=== PATIENT | female | born 1995 | race African-American/Black ===

== ENCOUNTER 2025-09-05 13:49 | Emergency (ER) | payer SELFPAY | END 2025-09-05 15:38 | disposition left against medical advice (07) | LOC: CSHERS 13:49 | DX: Z53.21 Procedure and treatment not carried out due to patient leaving prior to being seen by health care provider (principal) ==

== ENCOUNTER 2025-09-22 20:11 | Emergency (ER) | payer SELFPAY ==
[2025-09-22 20:33] LABS: Glucose, Urine (Dipstick) Normal (Negative); Leukocyte Negative (Negative); Protein, Urine (Dipstick) 30 mg/dl (Neg-Trace); Specific Gravity, Urine 1.015 (1.005-1.030)
[2025-09-22 20:35] LABS: Pregnancy Test - Urine (BHCG) Negative (Negative); Pregu Control Background? CLEAR/WHITE (CLR/WHITE); Pregu Control Bar Appear? YES (CONTROL BAR)
[2025-09-22 20:46] LABS: Bacteria/HPF 3+ HPF (None Seen); CAUTI Indications for Culture Dysuria,urgency,freq; Mucous/LPF 1+ LPF (<2+); Urine Culture Reflex No No; WBC/HPF 0-3 HPF (0-3)
[2025-09-22] MEDS ORDERED: Cephalexin 250 MG CAP ONE (22:16)
[2025-09-23 01:04] LABS: Chlamydia by PCR, Vaginal Swab Not Detected (NotDetected); GC by PCR, Vaginal Swab Not Detected (NotDetected)
== END 2025-09-22 22:13 | disposition home or self-care (01) ==
LOC: CSHERS 20:11
DX: N39.0 Urinary tract infection, site not specified (principal); N76.0 Acute vaginitis; B96.89 Other specified bacterial agents as the cause of diseases classified elsewhere; F17.290 Nicotine dependence, other tobacco product, uncomplicated
CPT/HCPCS: 81001; 81025; 87480; 87491; 87510; 87591; 87660; 99283